=== PATIENT | female | born 1990 | race Hispanic/Latino ===

== ENCOUNTER 2017-05-19 00:41 | Emergency (ER) | payer BC ==
[2017-05-19 01:00] VITALS: TEMP 98.7
[2017-05-19] MEDS ORDERED: Sodium Chloride 0.9% 1,000 ML IV STA ×2 (01:26→04:12)
[2017-05-19 02:42] LABS: BASO # 0.1 K/uL (0.0-0.2); BASO % 0.6 % (0.0-2.0); EOS # 0.1 K/uL (0.0-0.7); EOS % 1.6 % (0.0-4.0); HEMOGLOBIN 11.1 g/dL (12.0-16.0); LYMPH # 3.1 K/uL (1.0-4.3); LYMPH % 33.3 % (20.0-40.0); MEAN CELL VOLUME 61.8 fl (81.0-99.0); MEAN CORPUSCULAR HEMOGLOBIN 19.2 pg (27.0-31.0); MEAN CORPUSCULAR HGB CONC 31.1 g/dL (33.0-37.0); MEAN PLATELET VOLUME 11.4 fl (7.2-11.7); MONO # 1.1 K/uL (0.0-0.8); MONO % 11.4 % (0.0-10.0); NEUT % 53.1 % (50.0-75.0); NRBC % 0.1 % (0.0-0.0); RBC 5.79 Mil/uL (3.80-5.20); WHITE BLOOD COUNT 9.4 K/uL (4.8-10.8)
[2017-05-19 02:50] LABS: BLOOD UREA NITROGEN 16 mg/dl (7-17); CALCIUM 9.3 mg/dL (8.4-10.2); GFR AFRICAN-AMERICAN > 60; GFR NON-AFRICAN AMERICAN > 60
[2017-05-19 02:58] LABS: SQUAMOUS EPITHIAL 2 /hpf (0-5); URINE BACTERIA RARE (<OCC); URINE BILIRUBIN NEGATIVE (NEGATIVE); URINE BLOOD NEGATIVE (NEGATIVE); URINE CLARITY SLIGHTY-CLOUDY (Clear); URINE COLOR YELLOW (YELLOW); URINE GLUCOSE (UA) NEG (Normal); URINE LEUKOCYTE ESTERASE NEG Leu/uL (Negative); URINE NITRATE NEGATIVE (NEGATIVE); URINE PROTEIN NEGATIVE (NEGATIVE); URINE UROBILINOGEN 0.2-1.0 mg/dL (0.2-1.0)
--- NOTE | 2017-05-19 03:03 | ED PDOC ---
HPI: General Adult Time Seen by Provider: 05/19/17 01:08 Chief Complaint (Nursing): Shortness Of Breath Chief Complaint (Provider): Shortness Of Breath History Per: Patient History/Exam Limitations: no limitations Onset/Duration Of Symptoms: Mins (prior to arrival) Current Symptoms Are (Timing): Still Present Additional Complaint(s): 27 year old female with previous medical history of thyroid disease, who presents to the emergency department with a complaint of anxiety and palpitations radiating to throat ongoing since this evening. Denied any further medical complaints. Patient stated she has a thyroid uptake scan pending for and instructed to stop her thyroid medications today. She also reported taking Xanax 0.25mg earlier today which did not alleviate symptoms. PMD: none provided Past Medical History Reviewed: Historical Data, Nursing Documentation, Vital Signs Vital Signs: Last Vital Signs Temp 98.7 F 05/19/17 00:57 Pulse 86 05/19/17 05:53 Resp 22 05/19/17 05:53 BP 111/71 05/19/17 05:53 Pulse Ox 97 05/19/17 06:56 - Medical History PMH: Hyperthyroidism, Hypothyroidism Denies: No Chronic Diseases - Surgical History Surgical History: Denies: No Surg Hx - Family History Family History: States: Unknown Family Hx - Social History Current smoker - smoking cessation education provided: No Alcohol: Social Drugs: Denies - Allergies Allergies/Adverse Reactions: Allergies Allergy/AdvReac Type Severity Reaction Status Date / Time cefprozil [From Cefzil] Allergy URTICARIA Verified 05/19/17 01:00 Review of Systems ROS Statement: Except As Marked, All Systems Reviewed And Found Negative Cardiovascular: Positive for: Palpitations Psych: Positive for: Anxiety Physical Exam - Reviewed Nursing Documentation Reviewed: Yes Vital Signs Reviewed: Yes - Physical Exam Appears: Positive for: Well, Non-toxic, No Acute Distress Head Exam: Positive for: ATRAUMATIC, NORMAL INSPECTION, NORMOCEPHALIC Skin: Positive for: Normal Color Eye Exam: Positive for: Normal appearance ENT: Positive for: Normal ENT Inspection Neck: Positive for: Normal, Painless ROM. Negative for: Decreased ROM Cardiovascular/Chest: Positive for: Chest Non Tender, Tachycardia. Negative for : Regular Rate, Rhythm, Bradycardia Respiratory: Positive for: Normal Breath Sounds. Negative for: Decreased Breath Sounds, Wheezing, Respiratory Distress Gastrointestinal/Abdominal: Positive for: Normal Exam, Soft. Negative for: Tenderness Extremity: Positive for: Normal ROM (upper/lower). Negative for: Pedal Edema ( bilateral), Calf Tenderness (bilateral) Neurologic/Psych: Positive for: Alert (x3), Oriented - Laboratory Results Result Diagrams: 05/19/17 02:29 05/19/17 02:29 - ECG O2 Sat by Pulse Oximetry: 97 (RA) Pulse Ox Interpretation: Normal Medical Decision Making Medical Decision Making: Initial Impression: Anxiety vs. thyroid disease vs. PE Initial Plan: * EKG * BMP * TSH * Troponin I * CBC * D Dimer * CXR * Ativan 2mg IVP * NS 1,000ml IV per 1,000mls/hr * Zofran 4mg IVP * Urinalysis ____ Time: 0420 --CXR FINDINGS: Limitations: Radiographic technique - mild. Lungs: No consolidation. Pleural space: No pleural effusion. No pneumothorax. Heart: No cardiomegaly. Mediastinum: Unremarkable. Bones/joints: No acute fracture. Tubes, lines and devices: Leads overlying chest. IMPRESSION: 1. No definite acute cardiopulmonary disease. Time: 0640 --Discussed case with Dr. Leslie, supervisor [employer]. Recommend Kenalog 10mg as prescribed and to discharge patient if better. --Upon provider reevaluation, patient is medically stable, reports significant improvement, states she can now comfortably perform deep breathing. HR: improved at 85 BMP. BP: within normal limits. --Patient will be discharged home. Counseling was provided and all questions were answered regarding diagnosis, provider advised patient to take Kenalog as recommended at night and need for follow up with supervisor [employer]. --There is agreement to discharge plan. Return if symptoms persist or worsen, such as worsening tachycardia, chest pain, or other concerning symptoms. Clinical Impression: Tachycardia; thyroid disorder Scribe Attestation: Documented by Jasmin Drummond, acting as a scribe for Jose Wells MD. Provider Scribe Attestation: All medical record entries made by the Scribe were at my direction and personally dictated by me. I have reviewed the chart and agree that the record accurately reflects my personal performance of the history, physical exam, medical decision making, and the department course for this patient. I have also personally directed, reviewed, and agree with the discharge instructions and disposition. Disposition - Clinical Impression Clinical Impression: Tachycardia, Thyroid disorder - Patient ED Disposition Is Patient to be Admitted: No Counseled Patient/Family Regarding: Studies Performed, Diagnosis, Need For Followup - Disposition Referrals: Remberto Awan [Outside] Disposition: Routine/Home Disposition Time: 06:40 Condition: IMPROVED Additional Instructions: As discussed, please take your atenolol 10mg tonight. Monitor your heart rate. Return to the ER if your heart rate goes above 110 despite the medication, or return for other concerning symptoms. Instructions: Atrial Tachycardia (ED), Hyperthyroidism (ED) Forms: [employer] (Bengali)
[2017-05-19 05:20] LABS: T4 8.68 ug/dl (5.5-11.0)
[2017-05-19 05:34] LABS: T3 1.43 nmol/L (1.49-2.60)
[2017-05-19 06:45] VITALS: O2SAT 97
[2017-05-19 07:02] VITALS: BP 99/73; PULSE 83; RESP 16
--- NOTE | 2017-05-19 10:11 | RAD ---
HISTORY: sob, tachycardia COMPARISON: No prior. TECHNIQUE: Chest PA and lateral FINDINGS: LUNGS: No active pulmonary disease. PLEURA: No significant pleural effusion identified. No pneumothorax apparent. CARDIOVASCULAR: Normal. OSSEOUS STRUCTURES: No significant abnormalities. VISUALIZED UPPER ABDOMEN: Normal. OTHER FINDINGS: None. IMPRESSION: No acute cardiopulmonary disease appreciated.
--- NOTE | 2017-05-19 19:28 | CARD ---
APPROVED REPORT EKG Measurement Heart [id number] <Conclusion> Sinus tachycardia Possible Left atrial enlargement Borderline ECG
== END 2017-05-19 07:05 | disposition home or self-care (01) ==
LOC: H.ER 00:41
DX: I47.1 Supraventricular tachycardia (principal); E03.9 Hypothyroidism, unspecified; E05.90 Thyrotoxicosis, unspecified without thyrotoxic crisis or storm; F41.9 Anxiety disorder, unspecified
CPT/HCPCS: 71046; 80048; 81003; 81025; 84436; 84443; 84480; 84484; 85025; 85378; 93005; 96374; 96375; 96376; 99284; J2060; J2405; J7040